=== PATIENT | female | born 2000 | race Caucasian/White ===

== ENCOUNTER 2023-03-28 02:40 | Outpatient (CLI) | payer BC, SELFPAY ==
[2023-03-28 15:32] LABS: Panorama Kit Sent via Fed Ex
[2023-03-28 15:43] LABS: Abs Immature Grans 0.07 10^3/uL (0.0-0.06); Absolute Basophil Count 0.07 10^3/uL (0.0-0.2); Absolute Eosinophil Count 0.57 10^3/uL (0.0-0.7); Absolute Lymphocyte Count 2.44 10^3/uL (1.2-3.4); Absolute Neutrophil Count 10.15 10^3/uL (1.2-6.7); Basophils % 0.5; Eosinophils % 4.1; HCT 36.5 % (36.0-46.0); HGB 12.7 g/dL (11.2-15.7); Immature Grans % 0.5; Lymphocytes % 17.4; MCH 29.3 pg (27.0-33.0); MCHC 34.8 % (32.0-36.0); MCV 84 fL (80-95); MPV 11.4 fL (8.0-11.0); Neutrophils % 72.5; Platelet Count 279 10^3/uL (130-400); RBC 4.33 10^6/uL (3.93-5.22); RDW 15.1 % (11.7-14.6); RDW-SD 46.3 fL
[2023-03-30 09:59] LABS: Hepatitis B Surface Ag Negative (Negative)
[2023-03-30 10:17] LABS: Hepatitis C Ab w Rflx HCV PCR Negative (Negative)
[2023-03-30 10:38] LABS: HIV-1/2 Ag & Ab Screen Negative (Negative)
[2023-03-30 10:47] LABS: Varicella IgG Antibody Positive (See Note)
[2023-03-30 10:55] LABS: Rubella IgG Ab (UVM) Positive (See Note)
[2023-03-31 20:29] LABS: Syphilis IgG w/Reflex Nonreactive (Nonreactive)
[2023-04-02 03:54] LABS: Specimen WB Whole Blood
[2023-04-13 10:13] LABS: Result Summary NEGATIVE; Specimen WB Whole Blood
== END 2023-03-28 02:41 | disposition home or self-care (01) ==
LOC: LBO 02:40
PROVIDERS: Advanced Practice Midwife; Visit Provider Advanced Practice Midwife
DX: Z34.81 Encounter for supervision of other normal pregnancy, first trimester (principal)
CPT/HCPCS: 36415; 81220; 81222; 81329; 86787; 86803; 86850; 86900; 86901; 87340; 87389; 84443; 85025; 86762; 86780

== ENCOUNTER 2023-03-28 13:49 | Outpatient (REF) | payer BC, SELFPAY ==
[2023-03-28 18:36] LABS: *AMPHETAMINES SCREEN URINE Negative (Negative); *BARBITURATES SCREEN URINE Negative (Negative); *BENZODIAZEPINES SCREEN URINE Negative (Negative); Cannabinoids THC Negative (Negative); Cocaine Screen,Urine Negative (Negative); METHADONE URINE SCREEN Negative (Negative); OPIATES URINE SCREEN Negative (Negative)
[2023-03-28 18:37] LABS: Tricyclic Antidepressants Negative (Negative)
[2023-04-04 09:08] LABS: Buprenorphine Negative ng/mL (Cutoff: 5.0); Norbuprenorphine Negative ng/mL (Cutoff: 2.5)
== END 2023-03-28 13:50 | disposition home or self-care (01) ==
LOC: LBN 13:49
PROVIDERS: Visit Provider Advanced Practice Midwife
DX: Z34.91 Encounter for supervision of normal pregnancy, unspecified, first trimester (principal); Z3A.11 11 weeks gestation of pregnancy
CPT/HCPCS: 80307; 80348; 87086

== ENCOUNTER 2023-05-03 04:11 | Outpatient (CLI) | payer BC, SELFPAY ==
[2023-05-03 09:37] LABS: Glucose,1 Hr (Glucola) 147 mg/dL (80-140)
== END 2023-05-03 04:12 | disposition home or self-care (01) ==
LOC: LBO 04:12
PROVIDERS: Visit Provider Advanced Practice Midwife
DX: R42 Dizziness and giddiness (principal); Z34.92 Encounter for supervision of normal pregnancy, unspecified, second trimester
CPT/HCPCS: 36415; 82950

== ENCOUNTER 2023-05-16 11:53 | Outpatient (REF) | payer BC, SELFPAY ==
[2023-05-17 13:50] LABS: Chlamydia Result Negative (Negative); GC Result Negative (Negative)
== END 2023-05-16 11:54 | disposition home or self-care (01) ==
LOC: LBN 11:53
PROVIDERS: PCP Advanced Practice Midwife; Visit Provider Advanced Practice Midwife
DX: O26.892 Other specified pregnancy related conditions, second trimester (principal); R10.2 Pelvic and perineal pain
CPT/HCPCS: 87491; 87591; 87480; 87510; 87660

== ENCOUNTER 2023-05-27 15:30 | Outpatient (CLI) | payer BC, SELFPAY ==
--- NOTE | 2023-05-27 16:41 | W.PM.PROGNOT ---
Date of Service Date of service: 05/27/23 Time of Service: 16:41 Assessment and Plan Assessment and plan (1) Intermittent lower abdominal pain: Status: Acute Assessment and plan: A: UTI vs round ligament pain 22 yo @ 19 wks obstetrically stable; UA is negative P: Pt discharged to home UC&S pending Pt reassured regarding ligament pain & BH contrx Reviewed sx of PTL Keep next routine appt, call prn Subjective Subjective Patient reports: other (has lower abdominal pain when urinating, feels like a cramp. No bleeding, feeling FM easily.) Exam HENMT Head: normal to inspection Resp Effort & Inspection: normal respiratory effort and able to speak in complete sentences Cardio Rate: regular rate Rhythm: regular rhythm GI Inspection: normal to inspection Palpation: soft General: deferred Skin General skin exam: no rashes or lesions noted and elasticity normal Extrem General: normal to inspection, full ROM and normal gait Psych Appearance: grossly normal and well kempt Mental Status: mental status grossly normal Affect: normal affect Attitude: cooperative Thought Process: normal Other: pt reports feeling anxious about the since her lower abdominal pains started intermittently last week Objective Afebrile, vital signs nml/stable, FHT nml Abdominal exam benign, gravid, fundus @ umbilicus & soft UA sent, UC&S ordered Reviewed Pertinent PMH: Yes Time Spent with Patient Time Spent with Patient: 25-34 minutes Time was spent: preparing to see the patient(eg.review tests), obtaining and/or reviewing separately otained hiistory, ordering medications,tests, procedures, indepentently interpreting results and counseling the patient
[2023-05-27 16:47] VITALS: BP 120/71; PULSE 96; RESP 20; TEMP 36.6
[2023-05-27 16:51] LABS: Bilirubin Negative (Negative); Blood Negative (Negative); Clarity Clear (Clear); Glucose Negative (Negative); Ketones Negative (Negative); Leukocyte Esterase Negative (Negative); Nitrite Negative (Negative); Specific Gravity 1.015 (1.005-1.025); Urobilinogen 0.2 mg/dL (Up to 0.2); pH 7.5 (5-8)
== END 2023-05-27 15:31 | disposition home or self-care (01) ==
PROVIDERS: PCP Advanced Practice Midwife; Visit Provider Advanced Practice Midwife
DX: R10.30 Lower abdominal pain, unspecified (principal); O26.892 Other specified pregnancy related conditions, second trimester; Z3A.19 19 weeks gestation of pregnancy
CPT/HCPCS: 81003; 87086; G0378

== ENCOUNTER 2023-06-16 15:53 | Outpatient (REF) | payer BC, SELFPAY | END 2023-06-16 15:54 | disposition home or self-care (01) | LOC: LBN 15:53 | PROVIDERS: PCP Advanced Practice Midwife; Visit Provider Advanced Practice Midwife | DX: R30.0 Dysuria (principal) | CPT/HCPCS: 87086 ==

== ENCOUNTER 2023-07-14 11:02 | Outpatient (REF) | payer BC, SELFPAY | END 2023-07-14 11:03 | disposition home or self-care (01) | LOC: LBN 11:02 | PROVIDERS: PCP Advanced Practice Midwife; Visit Provider Advanced Practice Midwife | DX: O26.892 Other specified pregnancy related conditions, second trimester (principal); R10.9 Unspecified abdominal pain; Z3A.26 26 weeks gestation of pregnancy | CPT/HCPCS: 87086; 87480; 87510; 87660 ==

== ENCOUNTER 2023-07-25 02:26 | Outpatient (CLI) | payer BC, SELFPAY ==
[2023-07-25 08:07] LABS: HCT 32.7 % (36.0-46.0); HGB 10.8 g/dL (11.2-15.7); MCV 91 fL (80-95); MPV 10.4 fL (8.0-11.0); Platelet Count 293 10^3/uL (130-400); RDW 12.4 % (11.7-14.6); RDW-SD 41.1 fL; WBC 14.46 10^3/uL (4.4-10.8)
[2023-07-25 10:14] LABS: Glucose 1 Hour 159 mg/dL
[2023-07-25 12:03] LABS: Glucose 3 Hour 131 mg/dL
== END 2023-07-25 02:27 | disposition home or self-care (01) ==
LOC: LBO 02:28
PROVIDERS: PCP Advanced Practice Midwife; Visit Provider Advanced Practice Midwife
DX: Z34.93 Encounter for supervision of normal pregnancy, unspecified, third trimester (principal)
CPT/HCPCS: 36415; 85027; 82951

== ENCOUNTER 2023-08-03 13:06 | Outpatient (CLI) | payer BC, SELFPAY ==
[2023-08-03 14:40] VITALS: BP 115/78; PULSE 108; TEMP 36.8
[2023-08-03 14:42] VITALS: BP 115/78; PULSE 108
--- NOTE | 2023-08-03 15:41 | W.OBNST ---
Date of service: 08/03/23 Time of Service: 15:41 NST Evaluation Reason for NST Reasons for Nonstress Test: LABOR Gestational Age Gestational Age in Weeks and Days: 29 Weeks and 3Days Test and Monitor Explained Test/Monitor Explained: Test Explained, Monitor Explained and Patient Verbalized Understanding Vital Signs Blood Pressure: 115/78 Pulse: 108 Urine Results Urine Protein: Negative Urine Ketones: Negative Urine Glucose: Negative Urine Blood: Negative NST Information Date on Monitor: 08/03/23 Time on Monitor: 14:38 NST Interventions: PO Hydration Contraction Frequency: 0 NST Evaluation Patient States Movement: Present FHR Baseline: 140 Variability: Moderate 6-25 bpm Accelerations: 10x10 Decelerations: None NST Results: Reactive Note Ultrasound Done: N/A. NST Note Note: Vaginal yeast infection noted, Rx sent, cvx closed NST Reviewed and Verified by: Naomie Malloy
[2023-08-03 15:42] VITALS: BP 115/78; PULSE 108
== END 2023-08-03 15:25 ==
LOC: BCD 13:07 → OBS 14:34
PROVIDERS: PCP Advanced Practice Midwife; Visit Provider Advanced Practice Midwife
DX: O60.03 Preterm labor without delivery, third trimester (principal); Z3A.29 29 weeks gestation of pregnancy
CPT/HCPCS: 59025; 87480; 87510; 87660

== ENCOUNTER 2023-08-16 16:35 | Outpatient (CLI) | payer BC, SELFPAY ==
[2023-08-16 18:50] VITALS: BP 110/67; PULSE 98; RESP 18; TEMP 36.6
[2023-08-16 19:40] VITALS: BP 101/56; PULSE 85
[2023-08-16 19:41] VITALS: BP 102/61; PULSE 90
[2023-08-16 19:42] VITALS: BP 109/68; PULSE 97
[2023-08-16 20:14] LABS: HCT 31.3 % (36.0-46.0); HGB 10.3 g/dL (11.2-15.7); MCH 28.7 pg (27.0-33.0); MCHC 32.9 % (32.0-36.0); MCV 87 fL (80-95); MPV 10.1 fL (8.0-11.0); Platelet Count 298 10^3/uL (130-400); RBC 3.59 10^6/uL (3.93-5.22); RDW 12.9 % (11.7-14.6); RDW-SD 40.6 fL; WBC 16.19 10^3/uL (4.4-10.8)
--- NOTE | 2023-08-16 20:41 | W.OBNST ---
Date of service: 08/16/23 Time of Service: 20:47 NST Evaluation Gestational Age Gestational Age in Weeks and Days: 29 Weeks and 3Days Note Ultrasound Done: N/A. NST Note Note: Ariadna was feeling lightheaded at home and called earlier this afternoon. She was instructed by Melody Quezada CNM to come in for an NST. NST is reactive and normal vital signs including BPs taken standing and sitting. Ariadna reports adequate fluid intake today and she reports that symptoms had improved with her eyes closed. She denies headache or visual changes. She denies anxiety symptoms today. Her symptoms have improved. CBC drawn and Hgb 10.3. She has been taking a gummy and iron supplement every other day. I escribed a vitamin with iron to take daily and recommended iron every other day. Offered iron infusion and Ariadna would like to try po iron first. first. NST Reviewed and Verified by: Gracy Rosado
== END 2023-08-16 20:40 | disposition home or self-care (01) ==
LOC: BCD 16:37 → OBS 18:56
PROVIDERS: PCP Advanced Practice Midwife; Visit Provider Advanced Practice Midwife
DX: O99.893 Other specified diseases and conditions complicating puerperium (principal); R42 Dizziness and giddiness; Z3A.29 29 weeks gestation of pregnancy
CPT/HCPCS: 85027; G0378

== ENCOUNTER 2023-08-29 14:49 | Outpatient (REF) | payer BC, SELFPAY ==
[2023-08-29 16:40] LABS: COMMENT (LAB VIEW ONLY) 114.18 mg/dL; Prot/Crea Ur Ratio 0.21
== END 2023-08-29 14:50 | disposition home or self-care (01) ==
LOC: LBN 14:49
PROVIDERS: PCP Advanced Practice Midwife; Visit Provider Advanced Practice Midwife
DX: O26.893 Other specified pregnancy related conditions, third trimester (principal); R51.9 Headache, unspecified; N89.8 Other specified noninflammatory disorders of vagina; Z3A.33 33 weeks gestation of pregnancy
CPT/HCPCS: 82565; 84156; 87480; 87510; 87660

== ENCOUNTER 2023-09-05 17:08 | Outpatient (CLI) | payer BC, SELFPAY ==
[2023-09-05 19:40] VITALS: BP 111/64; PULSE 98; TEMP 36.9
--- NOTE | 2023-09-05 20:18 | W.OBNST ---
Date of service: 09/05/23 Time of Service: 19:40 NST Evaluation Reason for NST Reasons for Nonstress Test: OTHER, SEE COMMENT Reason for NST Other: maternal discomfort Gestational Age Gestational Age in Weeks and Days: 34 Weeks and 1Days Test and Monitor Explained Test/Monitor Explained: Test Explained Vital Signs Blood Pressure: 111/64 Pulse: 98 Temperature: 98.4 F NST Information Date on Monitor: 09/05/23 Time on Monitor: 19:00 Date off Monitor: 09/05/23 Time off Monitor: 19:32 Total Time on Monitor: 32 NST Interventions: PO Hydration Contraction Frequency: occasional, mostly movement NST Evaluation Patient States Movement: Present FHR Baseline: 125 Variability: Moderate 6-25 bpm Accelerations: 15x15 Decelerations: None NST Results: Reactive NST Results Other: very active fetus, nervous pt Note Ultrasound Done: N/A. NST Note Note: NST is reactive and reassuring. We discussed PTL and labor signs and normal discomforts of advancing . We reviewed self help measures for comfort. She will call our office to schedule a visit soon. OLRNA NST Reviewed and Verified by: Gracy Quezada
[2023-09-05 20:20] VITALS: BP 111/64; PULSE 98; TEMP 36.9
== END 2023-09-05 19:44 ==
LOC: BCD 17:12 → OBS 19:14
PROVIDERS: PCP Advanced Practice Midwife; Visit Provider Advanced Practice Midwife
DX: O99.891 Other specified diseases and conditions complicating pregnancy (principal); Z3A.34 34 weeks gestation of pregnancy; R10.9 Unspecified abdominal pain
CPT/HCPCS: 59025

== ENCOUNTER 2023-09-18 15:36 | Outpatient (REF) | payer BC, SELFPAY | END 2023-09-18 15:37 | disposition home or self-care (01) | LOC: LBN 15:36 | PROVIDERS: PCP Advanced Practice Midwife; Visit Provider Advanced Practice Midwife | DX: Z34.93 Encounter for supervision of normal pregnancy, unspecified, third trimester (principal); Z36.85 Encounter for antenatal screening for Streptococcus B; Z3A.36 36 weeks gestation of pregnancy | CPT/HCPCS: 87081 ==

== ENCOUNTER 2023-09-20 16:29 | Outpatient (CLI) | payer BC, SELFPAY ==
[2023-09-20 18:55] VITALS: BP 111/70; PULSE 90; TEMP 36.4
[2023-09-20 18:57] VITALS: BP 111/70; PULSE 90
--- NOTE | 2023-09-20 19:58 | W.OBNST ---
Date of service: 09/20/23 Time of Service: 19:58 NST Evaluation Reason for NST Reasons for Nonstress Test: OTHER, SEE COMMENT Reason for NST Other: rule out reupture Gestational Age Gestational Age in Weeks and Days: 36 Weeks and 2Days Test and Monitor Explained Test/Monitor Explained: Patient Verbalized Understanding Vital Signs Blood Pressure: 111/70 Pulse: 90 Temperature: 97.6 F Urine Results Urine Protein: Negative Urine Ketones: Positive Urine Glucose: Negative Urine Blood: Negative NST Information Date on Monitor: 09/20/23 Time on Monitor: 18:53 Date off Monitor: 09/20/23 Time off Monitor: 19:35 Total Time on Monitor: 42 NST Interventions: PO Hydration NST Evaluation Patient States Movement: Present FHR Baseline: 130 Variability: Moderate 6-25 bpm Accelerations: 15x15 Decelerations: None NST Results: Reactive Note Ultrasound Done: N/A. NST Note Note: SSE performed: no pooling, negative nitrizine, neg ferns Vaginal mucous clumpy white Unable to complete digital cvx exam due to pt intolerance of exam Not in labor, discharged to home Rx for clotrimazole vaginal cream sent to pharmacy NST Reviewed and Verified by: Naomie Malloy
[2023-09-20 19:59] VITALS: BP 111/70; PULSE 90; TEMP 36.4
== END 2023-09-20 19:55 | disposition home or self-care (01) ==
LOC: BCD 16:30 → OBS 18:53 → BCD 18:54
PROVIDERS: PCP Advanced Practice Midwife; Visit Provider Advanced Practice Midwife
DX: O47.03 False labor before 37 completed weeks of gestation, third trimester (principal); Z3A.36 36 weeks gestation of pregnancy
CPT/HCPCS: 59025

== ENCOUNTER → 2023-09-26 01:42 | Outpatient (CLI) | payer BC, SELFPAY ==
--- NOTE | 2023-09-26 07:45 | DI.US_ITS ---
Exam(s) US OB JEANIE WEIGHT EXAM: US OB JEANIE WEIGHT CLINICAL HISTORY: ,fundal ht high for dates,z34.90. TECHNIQUE: Transabdominal obstetrical ultrasound was performed. COMPARISON: US US OB F/U FACIAL/LVOT/RVOT from 07/31/2023 FINDINGS: There is a single viable intrauterine gestation with cardiac activity identified-164 bpm The fetus is presently in cephalic position with spine pointing anterior left. Amniotic fluid: There is a normal amount of amniotic fluid with an JEANIE of 20.38cm. Placental location: The placenta is fundal right/anterior, grade 2-3,with no evidence of placenta pre via. Dating parameters place this at approximately 39 weeks and 2 days gestational age, implying DAVION of 10/01/2023. BPD measures 39 weeks and 2 days HC measures 38 weeks and 5 days AC measures 40 weeks and 1 day FL measures 39 weeks and 0 days Estimated weight is 3830 gm-8 pound 7 ounces Fetus is at the greater than 97th percentile on the Hadlock scale. IMPRESSION:: Viable late 3rd trimester gestation, as described above. DATA REPOSITORY:
== END ==
PROVIDERS: PCP Advanced Practice Midwife; Visit Provider Advanced Practice Midwife
DX: O26.843 Uterine size-date discrepancy, third trimester (principal); Z3A.39 39 weeks gestation of pregnancy
CPT/HCPCS: 76816; 59025; G0378

== ENCOUNTER 2023-09-28 11:30 | Outpatient (CLI) | payer BC, SELFPAY ==
[2023-09-28 12:59] VITALS: BP 110/67; PULSE 117
[2023-09-28 13:07] VITALS: BP 110/67; PULSE 117
--- NOTE | 2023-09-28 13:39 | W.OBNST ---
Date of service: 09/28/23 Time of Service: 13:39 NST Evaluation Reason for NST Reasons for Nonstress Test: FALSE LABOR Gestational Age Gestational Age in Weeks and Days: 37 Weeks and 3Days Test and Monitor Explained Test/Monitor Explained: Test Explained, Monitor Explained and Patient Verbalized Understanding Vital Signs Blood Pressure: 110/67 Pulse: 117 Urine Results Urine Protein: Positive Urine Ketones: Positive Urine Glucose: Negative Urine Blood: Positive NST Information Date on Monitor: 09/28/23 Time on Monitor: 13:01 Date off Monitor: 09/28/23 Time off Monitor: 13:25 Total Time on Monitor: 24 NST Interventions: PO Hydration Contraction Frequency: 0 NST Evaluation Patient States Movement: Present FHR Baseline: 145 Variability: Moderate 6-25 bpm Accelerations: 15x15 Decelerations: None NST Results: Reactive Note Ultrasound Done: N/A. NST Note Note: NST is reactive and reassuring. She is feeling contractions that cannot be palpated and described as from sides to lower abdomen and some have tightening. Denies ROM. Has had mucous plug and old brown discharge since VE last night. We discussed cervical ripening and effacement as well as dilation in detail. She is aware that her body is being effective in its efforts to prepare for labor. She has appointment on Monday she will keep unless labor ensues. LORNA NST Reviewed and Verified by: Gracy Quezada
[2023-09-28 13:42] VITALS: BP 110/67; PULSE 117
== END 2023-09-28 13:49 ==
LOC: BCD 11:31 → OBS 12:29
PROVIDERS: PCP Advanced Practice Midwife; Visit Provider Advanced Practice Midwife
DX: O47.03 False labor before 37 completed weeks of gestation, third trimester (principal); Z3A.37 37 weeks gestation of pregnancy
CPT/HCPCS: 59025

== ENCOUNTER 2023-10-01 18:05 | Outpatient (CLI) | payer BC, SELFPAY ==
[2023-10-01 20:39] VITALS: BP 105/65; PULSE 104
[2023-10-01 21:21] VITALS: BP 105/65; PULSE 104; TEMP 36.8
--- NOTE | 2023-10-02 09:21 | PDOC.NST_ITS ---
Date of service: 10/01/23 Time of Service: 21:00 NST Evaluation Reason for NST Reasons for Nonstress Test: OTHER, SEE COMMENT Reason for NST Other: rule out labor Gestational Age Gestational Age in Weeks and Days: 37 Weeks and 6Days Test and Monitor Explained Test/Monitor Explained: Patient Verbalized Understanding Vital Signs Blood Pressure: 105/65 Pulse: 104 Temperature: 98.2 F Urine Results Urine Protein: Positive Urine Ketones: Positive Urine Glucose: Negative Urine Blood: Negative NST Information Date on Monitor: 10/01/23 Time on Monitor: 20:33 Date off Monitor: 10/01/23 Time off Monitor: 21:24 Total Time on Monitor: 51 NST Interventions: PO Hydration Contraction Frequency: 2-9 NST Evaluation Patient States Movement: Present FHR Baseline: 115 Variability: Moderate 6-25 bpm Accelerations: 15x15 Decelerations: None NST Results: Reactive Note Ultrasound Done: N/A. 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 She reports that they are painful , 7-8 on pain scale and every 2-3 minutes. SVE performed by RN. Cervix is poste rior and FT dilated. mild strength contractions noted. Signs of labor reviewed. Ariadna requested something for pain. I offered therapeutic rest at the Center or at home with ambien or benadryl. She opted to take her own Benadryl at home and attempt to get some rest. NST Reviewed and Verified by: Gracy Rosado
[2023-10-02 09:24] VITALS: BP 105/65; PULSE 104; TEMP 36.8
== END 2023-10-01 21:30 | disposition home or self-care (01) ==
LOC: BCD 18:09 → OBS 20:32
PROVIDERS: PCP Advanced Practice Midwife; Visit Provider Advanced Practice Midwife
DX: O47.03 False labor before 37 completed weeks of gestation, third trimester (principal); Z3A.37 37 weeks gestation of pregnancy
CPT/HCPCS: 59025

== ENCOUNTER 2023-10-18 10:03 | Inpatient (IN) | payer BC, SELFPAY ==
[2023-10-18 16:59] VITALS: BP 123/73; PULSE 89; RESP 16; TEMP 36.6; O2SAT 98
[2023-10-18 17:08] VITALS: BP 123/73; PULSE 89
[2023-10-18 17:17] VITALS: PULSE 91; O2SAT 98
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
[2023-10-18 17:44] LABS: HCT 34.2 % (36.0-46.0); HGB 10.8 g/dL (11.2-15.7); MCH 27.3 pg (27.0-33.0); MCHC 31.6 % (32.0-36.0); MCV 87 fL (80-95); MPV 10.2 fL (8.0-11.0); Platelet Count 241 10^3/uL (130-400); RBC 3.95 10^6/uL (3.93-5.22); RDW 15.9 % (11.7-14.6); RDW-SD 49.6 fL; WBC 11.32 10^3/uL (4.4-10.8)
[2023-10-18 20:14] VITALS: BP 115/61; PULSE 90
[2023-10-18] MEDS: miSOPROStol 25 MCG TAB 50 MCG PO (20:16)
[2023-10-18 21:56] VITALS: BP 81/48; PULSE 91
[2023-10-18 21:57] VITALS: BP 102/60; PULSE 100
[2023-10-18] MEDS: Acetaminophen 325 MG TAB 650 MG PO (22:10)
[2023-10-19] VITALS (55 sets, daily range): BP systolic 83–119; BP diastolic 47–80; PULSE 68–123; RESP 16; TEMP 36.4–36.8; O2SAT 97–100
[2023-10-19] MEDS: miSOPROStol 25 MCG TAB 50 MCG PO (01:04)
--- NOTE | 2023-10-19 03:17 | PGE_ITS ---
Date of service: 10/19/23 Time of Service: 03:17 Informed Consent Informed Consent: Induction of Labor and Risk,Benefits,Alternatives Discussed Pelvic Exam Comments: deferred per patient request Contractions Monitor Mode: External Contraction Frequency(min): 2-3 Contraction Duration(sec): 40-60 Intensity: Moderate Fetus A Monitor: Novii Heart Rate Baseline: 120 Variability: Moderate (6-25 BPM) Categories: Category I Accelerations: 15 X 15 Decelerations: None Amniotic Membrane Status: Ruptured Rupture Method: Spontaneous Amniotic Fluid: Clear and Bells Tinged Amount: moderate Date of Membrane Rupture: 10/19/23 Time of Membrane Rupture: 02:45 Assessment and Plan Assessment and plan (1) Encounter for induction of labor: Status: Acute Assessment and plan: 1. Comfort measures reviewed. Will use tub at this time and seems to be effective for her 2. Continue current management 3. Last dose of Misoprostol at approximately 0100, reassess by 0500 for contraction frequency and intensity Objective Abnormal lab results 10/18/23 Range/Units 17:36 WBC 11.32 H (4.4-10.8) 10^3/uL Hgb 10.8 L (11.2-15.7) g/dL Hct 34.2 L (36.0-46.0) % MCHC 31.6 L (32.0-36.0) % RDW 15.9 H (11.7-14.6) % Temp Pulse Resp BP Pulse Ox 97.9 F 81 16 113/77 98 10/18/23 16:59 10/19/23 02:33 10/18/23 16:59 10/19/23 02:33 10/18/23 17:17 Laboratory Results WBC 11.32 10^3/uL (4.4-10.8) H 10/18/23 17:36 RBC 3.95 10^6/uL (3.93-5.22) 10/18/23 17:36 Hgb 10.8 g/dL (11.2-15.7) L 10/18/23 17:36 Hct 34.2 % (36.0-46.0) L 10/18/23 17:36 MCV 87 fL (80-95) 10/18/23 17:36 MCH 27.3 pg (27.0-33.0) 10/18/23 17:36 MCHC 31.6 % (32.0-36.0) L 10/18/23 17:36 RDW 15.9 % (11.7-14.6) H 10/18/23 17:36 Plt Count 241 10^3/uL (130-400) 10/18/23 17:36 MPV 10.2 fL (8.0-11.0) 10/18/23 17:36 Patient ABO/Rh A Positive 10/18/23 17:36 Antibody Screen NEGATIVE 10/18/23 17:36 Subjective Interval history since last seen: Sarah reports contractions are much more uncomfortable and that she experienced SROM for clear fluid at 0245. Requested use of tub. Results Hemoglobin/Hematocrit: Hgb 10.8 g/dL (11.2-15.7) L 10/18/23 17:36 Hct 34.2 % (36.0-46.0) L 10/18/23 17:36 Abnormal Lab Findings: Abnormal Labs 10/18/23 17:36 WBC 11.32 H Hgb 10.8 L Hct 34.2 L MCHC 31.6 L RDW 15.9 H
[2023-10-19] MEDS: Acetaminophen 325 MG TAB 650 MG PO ×3 (05:47→20:01)
[2023-10-19] MEDS: Dibucaine 1% 28 GM TUBE TP ×2 (05:48→14:46)
[2023-10-19] MEDS: Ibuprofen 600 MG TAB PO ×3 (05:48→20:00)
[2023-10-19] MEDS: Hamamelis Leaf/Glycerin 100 EACH BOX PR (05:48)
--- NOTE | 2023-10-19 06:07 | W.OBDELIVERY ---
Date of service: 10/19/23 Time of Service: 06:07 OB Labor/ Delivery Information Baby A Delivery Delivery Method: Spontaneaous Presentation: Cephalic Cephalic Position: Vertex Vertex Position: Right Occipital Anterior Cord Description-Baby A: 3 Vessels and Clamped/Cut (after 3 minutes of delayed cord clamping) Amniotic Fluid: Clear Estimated Blood Loss: 250 Delivery Outcome: Liveborn (Male, name Tristan) Infant Transferred: Remains with Mother Note: Sarah presented in the evening of 10/18/23 for induction of labor at 40w2d per maternal request and increasing anxiety. She received a total of 2 doses of misoprostol 50 mcg at 2100 on 10/18/23 and at approximately 0130 on 10/19/23. FHR tracing was CAT I with frequent accelerations and baseline 120-130. She experienced SROM at 0245 on 10/19/23 and labor progressed quickly. She used TENS unit with maximum output of 40 and also used tub for a short period of time prior to that. She was 10 cm at 0415 and pushed effectively. Second stage huddle was held. It was noted that there was some risk for shoulder dystocia based on maternal weight gain of 40 lb. Plan to use IM pitocin after delivery of placenta. FHR remained normal range throughout pushing until . She delivered at 0451 a live male. It was noted that a swelling started on left labia with head delivery. Shoulder delivered easily and baby was placed skin to skin. Positive bonding noted. Cord was double clamped and cut by FOB (Erickson) after 3 minutes. Placenta delivered with gentle maternal pushing effort at 0459. Prisoner Classification Interviewer repaired perineal 2nd degree but then on bi manual exam noted that there were vaginal lacerations. Dr. Gerber was consulted for repair and for assessment of left labial hematoma. She was able to repair vaginal lacerations with 3.0 vicryl and patient tolerated well. It was decided to ice left labial swelling/hematoma as it as not getting larger and was still soft to touch. Will continue to assess that area PP. Baby 7/9. Weight pending. 3 vessel cord. She plans to breast feed and has baby at breast at 0600. VS stable. EBL 250cc. Sponge, instrument and needle count correct. Expect 48 hour PP stay. Providers Doctor: Nichelle Gerber Nurse Manager Training: Gracy Quezada Nurse: Ting Rahman Nurse: Sarah Cespedes Labor/Delivery Information Number of Babies in Womb: 1 Steroids Given: None Reason Steroids Not Administered: N/A Group Beta Strep: Negative Antibiotics Administered: No Rubella Status: Immune Blood Type: A+ Varicella Immunity: Immune Shoulder Dystocia: No Stages of Labor Onset of Labor Date: 10/18/23 Onset of Labor Time: 23:00 Complete Dilatation Date: 10/19/23 Complete Dilatation Time: 04:15 Labor - Stage 1 Duration: 5 hours and 15 minutes ROM Baby A: 10/19/23 ROM Baby A: 02:45 ROM Total Time- Baby A: [id number] Infant Delivery Date-Baby A: 10/19/23 Infant Delivery Time-Baby A: 04:51 Labor Stage 2 Duration: 36 minutes Placenta Delivery Date-Baby A: 10/19/23 Placenta Delivery Time-Baby A: 04:59 Labor-Stage 3 Duration: 8 minutes Total Length of Labor-Baby A: 5 hours and 51 minutes Placenta Status: Delivered Baby A Infant Gender: Male Gestational Status: Term (39-41.6 wks) Gestational Age in Weeks/Days: 40 Weeks and 3 Days Score-1 Minute Interval(Baby A) Heart Rate-1 minute: 100 BPM or Greater Respiratory Effort- 1 minute: Slow Respiration/Weak Cry Muscle Tone-1 minute: Active Movement Reflex Response-1 minute: Minimal Response Color-1 minute: Bluish Hands or Feet Total Score-1 minute: 7 Score-5 Minute Interval(Baby A) Heart Rate- 5 minute: 100 BPM or Greater Respiratory Effort-5 minute: Spontaneous/Strong Cry Muscle Tone-5 minute: Active Movement Reflex Response-5 minute: Prompt Response Color-5 minute: Bluish Hands or Feet Total Score- 5 minute: 9
--- NOTE | 2023-10-19 08:06 | W.PM.OBPNV1 ---
Date of service: 10/19/23 Time of Service: 08:06 Assessment and Plan Assessment and plan (1) care following vaginal delivery: Status: Acute Assessment and plan: 1. Encouraged patient to lay with head of bed down 2. Ice to perineum 3. CBC drawn stat 4. IV access obtained will give 500 cc bolus JENNIFER (2) Hematoma of labia majora: Status: Acute Assessment and plan: 1. Hematoma is sightly smaller in size and is not becoming more tense 2. Will review with MD correctional counselor/case manager and inform of plan for IV access/bolus and cbc stat. LORNA Subjective Subjective Interval history: marine underwriter notified that patient is pale and BP is 80's/50's HR 70's. No increased vaginal bleeding. Has not been out of bed to BR to void. LORNA Howard baby status: Doing well and Rooming in feeding status: Exclusively breast feeding Exam Physical Exam Vital signs: Temp Pulse Resp BP Pulse Ox 97.9 F 76 16 83/50 L 97 10/18/23 16:59 10/19/23 08:03 10/18/23 16:59 10/19/23 07:51 10/19/23 08:03 Vital Signs Reviewed: Yes Constitutional Constitutional: no acute distress Comments: was sitting up in bed, pale but alert and awake. once she was laying down color improved. HEENT Exam HEENT Exam: Normal Respiratory Exam Respiratory Exam: Normal Cardiovascular Exam Cardiovascular Exam: Normal (slightly low BP) Fundal Exam Fundus: Below Umbilicus and Firm Exam Comments: left labial hematoma has not increased in size and is medium firmness, minimal lochia Extremities Exam Extremity Exam: Normal Skin Exam Skin Exam: Normal Neurological Exam Neurological Exam: Normal Psychiatric Exam Psychiatric Exam: Normal Results Hemoglobin/Hematocrit: Hgb 10.8 g/dL (11.2-15.7) L 10/18/23 17:36 Hct 34.2 % (36.0-46.0) L 10/18/23 17:36 Abnormal Lab Findings: Abnormal Labs 10/18/23 17:36 WBC 11.32 H Hgb 10.8 L Hct 34.2 L MCHC 31.6 L RDW 15.9 H
[2023-10-19 08:13] LABS: HCT 31.2 % (36.0-46.0); MCH 27.9 pg (27.0-33.0); MCHC 32.1 % (32.0-36.0); MCV 87 fL (80-95); MPV 10.3 fL (8.0-11.0); Platelet Count 257 10^3/uL (130-400); RBC 3.58 10^6/uL (3.93-5.22); RDW-SD 50.8 fL; WBC 23.99 10^3/uL (4.4-10.8)
--- NOTE | 2023-10-19 08:16 | W.PM.PROGNOT ---
Date of Service Date of service: 10/19/23 Time of Service: 05:15 Assessment and Plan Assessment and plan (1) Hematoma of labia majora: Status: Acute Assessment and plan: The sulcal tear was repaired with minimal difficulty related to impaired visualization by the left labial hematoma. The hematoma appears stable. Will continue to monitor for changes in size/signs of blood loss. Subjective Subjective Interval history since last seen: Called to evaluate pt due to developement of a left labial hematoma post-delivery and sulcal tears. The labial hematoma was first noticed as the head was . It did not enlarge significantly post-delivery. The sawdust machine operator repaired a 2nd degree perineal laceration but then noticed deeper tears that were difficult to visualize due to the tenderness of the hematoma with pressure. Pt was not bleeding excessively at the time. Exam Const General: cooperative, healthy appearing and no acute distress HENID Head: normocephalic and atraumatic Ears: hearing grossly normal bilaterally Resp Effort & Inspection: normal respiratory effort and able to speak in complete sentences Other: A bilateral sulcal tear was identified tactilely without and repaired with 3-0 vicryl in a running locked fashion. The hematoma remained visually stable throughout the repaired and was not particularly tense. Neuro General: patient alert and patient awake Psych Appearance: grossly normal Mental Status: mental status grossly normal Speech and Movement: speech and movement normal Affect: normal affect Attitude: cooperative Thought Process: normal Thought Content: normal Objective Last Vital Signs Temp 97.9 F 10/18/23 16:59 Pulse 89 10/19/23 08:13 Resp 16 10/18/23 16:59 BP 88/56 L 10/19/23 08:09 Pulse Ox 98 10/19/23 08:13 Laboratory Results - last 24 hr 10/18/23 10/19/23 17:36 08:07 WBC 11.32 H 23.99 H RBC 3.95 3.58 L Hgb 10.8 L 10.0 L Hct 34.2 L 31.2 L MCV 87 87 MCH 27.3 27.9 MCHC 31.6 L 32.1 RDW 15.9 H 16.0 H Plt Count 241 257 MPV 10.2 10.3 Patient ABO/Rh A Positive Antibody Screen NEGATIVE Time Spent with Patient Time Spent with Patient: 25-34 minutes Time was spent: obtaining and/or reviewing separately otained hiistory, referring, communicating with other health complex care nurse practitioner and counseling the patient
--- NOTE | 2023-10-19 17:53 | PDOC.CMPRO ---
Date of service: 10/19/23 Time of Service: 17:53 Care Management Progress Note Progress Note Text Progress Note Text: CM was asked to meet with Ariadna , after Ariadna had made concerning statements regarding SI during an outpatient therapy visit with [facility]. Ariadna and Mattie created a safety plan, which included follow up with Mattie, as well as coping skills and several contacts of friends and professional supports that she can reach out to if she feels that she is in crisis. Ariadna was sitting up in bed, with her baby near her in the bassinet, and her in the room, resting. Ariadna stated that she is doing well, and discussed her experience with REZA. CM asked how Ariadna is feeling, after having her son. She stated that she feels that she is in a good place, and that she is happy, and excited to be a mother. Ariadna stated that she isn't expecting many visitors during their stay, but she is ok with that, because they all need to get some rest and settle in together. Ariadna stated that breast feeding has been going very well, and he has been able to latch successfully a few times. CM asked if Ariadna has plans to follow up with [facility], and she stated that she doesn't have an appointment, but that she will plan to follow up with her after they are home and settled. CM offered to follow up tomorrow, as they were all trying to get some rest. CM will continue to follow. SDOH(Care Management) Screening Will the Patient Participate in the Screening?: Yes Do you worry about having a steady place to live?: no In the past 12 months, have you had to go without electric, gas, oil or water in your home?: no Have you or anyone in your house had to go without enough food to eat?: no Has lack of transportation kept you from medical appointments or from doing things needed for daily living?: no Has anyone in your support network made you feel unsafe for any reason?: no
[2023-10-19] MEDS: Docusate Sodium 100 MG CAP PO (20:01)
[2023-10-19] MEDS: Normal Saline Flush 10 ML SYR IVP (20:42)
[2023-10-19] MEDS: Hydrocortisone 1% CR 30 GM TUBE TP (20:53)
[2023-10-20] MEDS: Ibuprofen 600 MG TAB PO ×3 (03:21→20:07)
[2023-10-20] MEDS: Acetaminophen 325 MG TAB 650 MG PO ×4 (03:22→20:07)
[2023-10-20 06:52] LABS: HCT 24.9 % (36.0-46.0); HGB 7.9 g/dL (11.2-15.7); MCH 27.5 pg (27.0-33.0); MCHC 31.7 % (32.0-36.0); MCV 87 fL (80-95); MPV 11.2 fL (8.0-11.0); Platelet Count 230 10^3/uL (130-400); RBC 2.87 10^6/uL (3.93-5.22); RDW 16.2 % (11.7-14.6); RDW-SD 50.6 fL; WBC 15.64 10^3/uL (4.4-10.8)
[2023-10-20 08:00] VITALS: BP 101/69; PULSE 110; RESP 18; TEMP 36.6; O2SAT 98
[2023-10-20] MEDS: Normal Saline Flush 10 ML SYR IVP ×3 (08:04→12:00)
[2023-10-20] MEDS: Docusate Sodium 100 MG CAP PO ×2 (08:05→20:07)
[2023-10-20] MEDS: Dibucaine 1% 28 GM TUBE TP (08:12)
[2023-10-20] MEDS: IRON SUCROSE COMPLEX 200 MG in Normal Saline 100 ML 400 MG IVPB (11:39)
--- NOTE | 2023-10-20 15:00 | W.PM.OBPNV1 ---
Date of service: 10/20/23 Time of Service: 15:00 Assessment and Plan Assessment and plan (1) Hematoma of labia majora: Status: Acute Assessment and plan: Sarah juarez start sitz baths tomorrow for comfort. Continue PO analgesics. (2) Depression with suicidal ideation: Status: Acute Assessment and plan: Post VNA visits encouraged due to depression and anxiety and suicidal ideation during . (3) care following vaginal delivery: Status: Acute Assessment and plan: Caring for baby independently. Pain is managed well with oral analgesics. Voiding without difficulty. well. A - stable mother and baby , Post day 1 P - Discharge to home tomorrow. Routine post instructions. [facility] Subjective Subjective Patient comments: Incisional pain (perineal discomfort) [place] baby status: Doing well and Nursing well feeding status: Exclusively breast feeding Exam Physical Exam Vital signs: Temp Pulse Resp BP Pulse Ox 97.9 F 110 H 18 101/69 98 10/20/23 08:00 10/20/23 08:00 10/20/23 08:00 10/20/23 08:00 10/20/23 08:00 Vital Signs Reviewed: Yes Constitutional Constitutional: no acute distress HEENT Exam HEENT Exam: Normal Respiratory Exam Respiratory Exam: Normal Cardiovascular Exam Cardiovascular Exam: Normal Fundal Exam Fundus: Below Umbilicus and Firm Rectal Exam Rectal Exam: Normal Exam Comments: perineum visualized by Dr Gerber who performed the vaginal repair. Extremities Exam Extremity Exam: Normal Skin Exam Skin Exam: Normal Psychiatric Exam Psychiatric Exam: Normal Results Hemoglobin/Hematocrit: Hgb 7.9 g/dL (11.2-15.7) L D 10/20/23 06:03 Hct 24.9 % (36.0-46.0) L 10/20/23 06:03 Abnormal Lab Findings: Abnormal Labs 10/18/23 10/19/23 10/20/23 17:36 08:07 06:03 WBC 11.32 H 23.99 H 15.64 H RBC 3.58 L 2.87 L Hgb 10.8 L 10.0 L 7.9 L D Hct 34.2 L 31.2 L 24.9 L MCHC 31.6 L 31.7 L RDW 15.9 H 16.0 H 16.2 H MPV 11.2 H
[2023-10-20 15:45] VITALS: BP 95/58; PULSE 82; RESP 18; TEMP 36.4; O2SAT 98
--- NOTE | 2023-10-20 17:23 | PDOC.CMPRO ---
Date of service: 10/20/23 Time of Service: 17:23 Care Management Progress Note Progress Note Text Progress Note Text: Ariadna was sitting up in bed holding her baby, [place], with her , Erickson by her side when CM met with them. Per report, Ariadna and Tristan will likely be discharged home tomorrow. CM asked Ariadna how she is feeling about going home tomorrow, and she stated that she is excited and also nervous. CM asked what she is feeling nervous about, and she stated that she is mostly nervous about how sore she is, and being able to navigate her home, with stairs, while being very sore. She stated that while at [facility] she has been able to walk around, but slowly and carefully. Per RN, Ariadna was able to take a shower today with support from her nurse, while Erickson was present for Bloomington's circumcision. CM encouraged Ariadna to take it slow, and listen to her body, as it will take time for her to heal. Ariadna also stated that she looks forward to being home, in their own bed, and to develop a routine. She stated that they have more than enough baby items for Tristan, including a bassinet which will be next to their bed for him to sleep in. Ariadna reported that emotionally, she has had some ups and downs. She expressed that it can be especially worrisome when Tristan is crying and she isn't sure what he needs to soothe him. CM encouraged Ariadna to be gentle with herself, as both Ariadna and Bloomington are learning each other, which will take time as well. CM stated that ups and downs are normal, and also discussed depression, as it is a risk for all new mothers. CM reviewed the safety plan that Ariadna and Mattie created, including supports for Ariadna to reach out to if she feels she is in crisis. Ariadna stated that she expects to have a follow up appointment soon after discharge for [place] at his PCP office, [facility]. She also stated that she will plan to follow up with Mattie post hospitalization as well, after she is settled in at home with [place]. Ariadna stated that she is happy to have visiting nurses at home, as she feels it will help, as one of her primary concerns at this time is her physical healing. Ariadna did not express any further concerns, and feels comfortable with her potential discharge home tomorrow. CM will continue to follow. SDOH(Care Management) Screening Will the Patient Participate in the Screening?: Yes Do you worry about having a steady place to live?: no In the past 12 months, have you had to go without electric, gas, oil or water in your home?: no Have you or anyone in your house had to go without enough food to eat?: no Has lack of transportation kept you from medical appointments or from doing things needed for daily living?: no Has anyone in your support network made you feel unsafe for any reason?: no
[2023-10-20 20:33] VITALS: BP 117/76; PULSE 95; RESP 22; O2SAT 99
[2023-10-21] MEDS: Dibucaine 1% 28 GM TUBE TP ×2 (02:45→09:12)
[2023-10-21] MEDS: Acetaminophen 325 MG TAB 650 MG PO ×2 (05:50→12:02)
[2023-10-21] MEDS: Ibuprofen 600 MG TAB PO ×2 (05:50→12:01)
[2023-10-21 08:15] VITALS: BP 109/72; PULSE 92; RESP 14; TEMP 36.9
[2023-10-21] MEDS: Hamamelis Leaf/Glycerin 100 EACH BOX PR (09:13)
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
[2023-10-21 11:44] LABS: HCT 26.6 % (36.0-46.0); HGB 8.3 g/dL (11.2-15.7); MCH 27.4 pg (27.0-33.0); MCHC 31.2 % (32.0-36.0); MCV 88 fL (80-95); Platelet Count 234 10^3/uL (130-400); RBC 3.03 10^6/uL (3.93-5.22); RDW-SD 50.9 fL; WBC 13.47 10^3/uL (4.4-10.8)
[2023-10-21 12:00] VITALS: BP 101/69; PULSE 87; RESP 12; TEMP 36.8
[2023-10-21] MEDS: Docusate Sodium 100 MG CAP PO (12:02)
--- NOTE | 2023-10-21 17:24 | PDOC.CMPRO ---
Date of service: 10/21/23 Time of Service: 17:24 Care Management Progress Note Progress Note Text Progress Note Text: REZA was asked to assist with setting up home health services for Ariadna. CM met with Ariadna and her and both appeared calm and relaxed and stated they were looking forward to going home with their new baby. Ariadna lives in [place], [place] and the local home health agency for that area is [facility]. CM contacted them by phone and sent a referral the necessary documents ffor services to begin tomorrow or Monday. SDOH(Care Management) Screening Will the Patient Participate in the Screening?: Yes Do you worry about having a steady place to live?: no In the past 12 months, have you had to go without electric, gas, oil or water in your home?: no Have you or anyone in your house had to go without enough food to eat?: no Has lack of transportation kept you from medical appointments or from doing things needed for daily living?: no Has anyone in your support network made you feel unsafe for any reason?: no
== END 2023-10-21 13:10 | disposition home health service (06) | DRG 806 ==
PROVIDERS: Advanced Practice Midwife; Admitting Provider Advanced Practice Midwife; PCP Pediatrics; Visit Provider Advanced Practice Midwife
DX: O99.344 Other mental disorders complicating childbirth (principal); D62 Acute posthemorrhagic anemia; Z37.0 Single live birth; F33.2 Major depressive disorder, recurrent severe without psychotic features; R45.851 Suicidal ideations; O71.7 Obstetric hematoma of pelvis; F41.9 Anxiety disorder, unspecified; Z3A.40 40 weeks gestation of pregnancy; O12.04 Gestational edema, complicating childbirth; O36.63X0 Maternal care for excessive fetal growth, third trimester, not applicable or unspecified; O70.1 Second degree perineal laceration during delivery; O99.02 Anemia complicating childbirth
CPT/HCPCS: 36415; 85027; 86850; 86900; 86901; J1756; J3490